=== PATIENT | female | born 1965 | race African-American/Black ===

== ENCOUNTER 2016-08-31 07:00 | Inpatient (IN) | payer OTHER ==
[~2016-08-31] VITALS: Ht 170.2 cm; Wt 81.6 kg
[2016-08-31] VITALS (14 sets, daily range): BP systolic 90–115; BP diastolic 62–77
[~2016-08-31 07:00] MED LIST: ceFAZolin sod 1 GM in NS 55 ML IVPB ONE
--- NOTE | 2016-08-31 12:21 | Pre-Procedure Note/Attestation ---
Pre-Procedure Note/Attestation Complete Prior to Procedure Planned Procedure: bilateral Procedure Narrative: Washout and debridement bilateral breast wounds. Removal right breast implant. Possible placement of wound vac. Indications for Procedure Pre-Operative Diagnosis: Bilateral breast wound dehiscence and infection Attestation I attest that I discussed the nature of the procedure; its benefits; risks and complications; and alternatives (and the risks and benefits of such alternatives ), prior to the procedure, with the patient (or the patient's legal public relations representative). I attest that, if there was a reasonable possibility of needing a blood transfusion, the patient (or the patient's legal public relations representative) was given the [facility] standardized written summary, pursuant to the Alberto [place] Blood Safety Act ([place] Health and Safety Code # 1645, as amended). I attest that I re-evaluated the patient just prior to the surgery and that there has been no change in the patient's H&P, except as documented below: None SADIE IRIZARRY M.D. Aug 31, 2016 12:21
[2016-08-31] MEDS ORDERED: NKM (13:37)
[2016-08-31 14:12] LABS: BASOPHILS % (AUTO) 1.4 % (0.0-2.0); LYMPHOCYTES % (AUTO) 36.9 % (20.0-45.0); MEAN CORPUSCULAR HEMOGLOBIN 29.3 PG (27.0-31.0); MEAN CORPUSCULAR HGB CONC 31.7 G/DL (32.0-36.0); MEAN CORPUSCULAR VOLUME 92 FL (80-99); MEAN PLATELET VOLUME 5.1 FL (6.5-10.1); MONOCYTES % (AUTO) 6.9 % (1.0-10.0); NEUTROPHILS % (AUTO) 51.8 % (45.0-75.0); PLATELET COUNT 472 K/UL (150-450); RED BLOOD COUNT 4.38 M/UL (4.20-5.40); RED CELL DISTRIBUTION WIDTH 12.7 % (11.6-14.8); WHITE BLOOD COUNT 4.7 K/UL (4.8-10.8)
[2016-08-31 14:25] LABS: INR 1.1 (0.9-1.1); PROTHROMBIN TIME 11.8 SEC (9.30-11.50)
[2016-08-31 14:29] LABS: CREATININE 1.2 mg/dL (0.5-0.9); GLOMERULAR FILTRATION RATE 57.3 mL/min (>60); TOTAL PROTEIN 7.9 g/dL (6.6-8.7)
[2016-08-31] MEDS ORDERED: Propofol 10mg/ml 20ml IV ONE (16:00)
[2016-08-31] MEDS ORDERED: Sterile Water Irrig 1000ml IRRIG ONE (16:00)
[2016-08-31] MEDS ORDERED: LR 1000ml ONE (16:00)
[2016-08-31] MEDS ORDERED: Ketamine 500mg Inj ONE (16:00)
[2016-08-31] MEDS ORDERED: Lidocaine 1% MPF 10mg/ml 5ml ONE (16:00)
[2016-08-31] MEDS ORDERED: fentaNYL 100 mcg/2 mL IV ONE (16:00)
[2016-08-31] MEDS ORDERED: NS Irrig 1000ml ONE (16:00)
[2016-08-31] MEDS ORDERED: Bacitracin 50000 Units Vial ONE (16:16)
[2016-08-31] MEDS ORDERED: LR 1000ml 1,000 ML IVLG SCH (16:52)
--- NOTE | 2016-08-31 16:52 | Anethesia Preoperative Eval ---
Anesthesia Pre-op PMH/ROS General Date of Evaluation: Aug 31, 2016 Time of Evaluation: 16:09 Anesthesiologist: Hoang ASA Score: ASA 2 Mallampati Score Class I : Soft palate, uvula, fauces, pillars visible Class II: Soft palate, uvula, fauces visible Class III: Soft palate, base of uvula visible Class IV: Only hard plate visible Mallampati Classification: Class II Surgeon: [place] Diagnosis: Bilateral Breast Wounds Surgical Procedure: I and D Bilateral Breast Wounds Anesthesia History: none Family History: no anesthesia problems Allergies: Coded Allergies: No Known Allergies (Unverified , 08/28/16) Medications: see eMAR Past Medical History Cardiovascular: Reports: HTN, other - HL Hematology/Immune: Reports: anemia PSxH Narrative: Cholecystectomy, DEB, Bilateral Breast Implants Anesthesia Pre-op Phys. Exam Physician Exam Last Vital Signs Date Time Temp Pulse Resp B/P Pulse Ox O2 Delivery O2 Flow Rate FiO2 08/31/16 13:50 97.9 74 20 102/73 97 Room Air Constitutional: NAD Neurologic: CN 2-12 intact Cardiovascular: RRR Respiratory: CTA Gastrointestinal: S/NT/ND Airway Exam Mallampati Score: Class II MO: full ROM: full Teeth: intact Anesthesia Pre-op A/P Labs Hematology Test 08/31/16 13:55 White Blood Count 4.7 K/UL (4.8-10.8) L Red Blood Count 4.38 M/UL (4.20-5.40) Hemoglobin 12.8 G/DL (12.0-16.0) Hematocrit 40.4 % (37.0-47.0) Mean Corpuscular Volume 92 FL (80-99) Mean Corpuscular Hemoglobin 29.3 PG (27.0-31.0) Mean Corpuscular Hemoglobin Concent 31.7 G/DL (32.0-36.0) L Red Cell Distribution Width 12.7 % (11.6-14.8) Platelet Count 472 K/UL (150-450) H Mean Platelet Volume 5.1 FL (6.5-10.1) L Neutrophils (%) (Auto) 51.8 % (45.0-75.0) Lymphocytes (%) (Auto) 36.9 % (20.0-45.0) Monocytes (%) (Auto) 6.9 % (1.0-10.0) Eosinophils (%) (Auto) 3.0 % (0.0-3.0) Basophils (%) (Auto) 1.4 % (0.0-2.0) Coagulation Test 08/31/16 13:55 Prothrombin Time 11.8 SEC (9.30-11.50) H Prothromb Time International Ratio 1.1 (0.9-1.1) Activated Partial Thromboplast Time 27 SEC (23-33) Chemistry Test 08/31/16 13:55 Sodium Level 140 mEQ/L (135-145) Potassium Level 5.0 mEQ/L (3.4-4.9) H Chloride Level 100 mEQ/L (98-107) Carbon Dioxide Level 22 mEQ/L (20-30) Anion Gap 18 (5-15) H Blood Urea Nitrogen 10 mg/dL (7-23) Creatinine 1.2 mg/dL (0.5-0.9) H Estimat Glomerular Filtration Rate 57.3 mL/min (>60) Glucose Level 88 mg/dL (74-106) Calcium Level 10.0 mg/dL (8.6-10.2) Total Bilirubin 0.3 mg/dL (0.0-1.2) Aspartate Amino Transf (AST/SGOT) 17 U/L (5-40) Alanine Aminotransferase (ALT/SGPT) 12 U/L (3-33) Alkaline Phosphatase 98 U/L (35-104) Total Protein 7.9 g/dL (6.6-8.7) Albumin 4.0 g/dL (3.5-5.2) Globulin 3.9 g/dL Albumin/Globulin Ratio 1.0 (1.0-2.7) Risk Assessment & Plan Assessment: ASA 2 Plan: GA Status Change Before Surgery: No Pre-Antibiotics Drug: Levoquine 500 mg Time Given: 16:44 Raul Bolton MD Aug 31, 2016 16:52
[2016-08-31] MEDS ORDERED: Midazolam 2mg/2ml Inj IVP PRN (17:00)
[2016-08-31] MEDS ORDERED: Metoclopramide 10mg/2ml Inj IVP PRN (17:00)
[2016-08-31] MEDS ORDERED: Norco 5mg/325mg tab ORAL PRN ×2 (17:00→22:45)
[2016-08-31] MEDS ORDERED: Ketorolac 30mg Inj IV PRN (17:00)
[2016-08-31] MEDS ORDERED: Oxycodone/Acetaminophen 5-325 ORAL PRN (17:00)
[2016-08-31] MEDS ORDERED: Ketorolac 60mg Inj IV PRN (17:00)
[2016-08-31] MEDS ORDERED: Norco 7.5mg/325mg tab ORAL PRN (17:00)
[2016-08-31] MEDS ORDERED: LORazepam Inj 2mg/ml 1ml IV PRN (17:00)
[2016-08-31] MEDS ORDERED: Atropine Inj 1mg/10ml Syr IV PRN (17:00)
[2016-08-31] MEDS ORDERED: Hydromorphone 0.5mg/0.5ml inj IVP PRN (17:00)
[2016-08-31] MEDS ORDERED: fentaNYL 100 mcg/2 mL IV PRN (17:00)
[2016-08-31] MEDS ORDERED: Meperidine 25mg/0.5ml Inj IV PRN (17:00)
[2016-08-31] MEDS ORDERED: DiphenhydrAMINE 50mg/ml Inj IVP PRN (17:00)
--- NOTE | 2016-08-31 17:01 | Pre-op HX & Phy Repo 2 SIG ---
DATE OF ADMISSION: 08/31/2016 CHIEF COMPLAINT: Bilateral breast wound dehiscence with infection. HISTORY OF PRESENT ILLNESS: The patient is a 50-year-old female, who had previously undergone bilateral capsulectomy, implant exchange, and breast lift procedure one month prior on 07/24/2015. The patient's postoperative course had been complicated by wound dehiscence of each breast and ischemic necrosis of bilateral areolas. The patient was subsequently taken back to the operating room for a washout and debridement procedure of bilateral breast wounds and removal of a left breast implant five days ago on 08/26/2016. The patient is in need of further washout and debridement with possible placement of wound VAC. The patient will undergo followup surgery at [facility] and be admitted postoperatively for wound VAC therapy, wound care, pain management, antibiotic therapy, and serial examinations. PAST MEDICAL HISTORY: Hypercholesterolemia. PAST SURGICAL HISTORY: Breast augmentation in 2006 and cholecystectomy in March 2016, bilateral capsulectomy, implant exchange, and breast lift on 07/24/2015. Washout and debridement of bilateral breast wounds 08/26/2016. MEDICATIONS: Atorvastatin, [place], and Bactrim. SOCIAL HISTORY: Denies smoking. Denies alcohol use. Denies any recreational drug use. FAMILY HISTORY: Noncontributory. ALLERGIES: No known drug allergies. No latex allergy. PHYSICAL EXAMINATION: GENERAL: The patient is in no apparent distress. CHEST: Examination of the chest reveals bilateral wound debridement sites to be intact with overlying viable skin. On the right breast, there are areas of exposed granulation tissue within the central areolar region of the breast at the junction of the Arriola pattern breast lift incision. On the left breast, there is a smaller granulating wound within the central areolar region of the breast. A Ehsan-Roman drain remains in place in the left breast exiting from the center of the horizontal Arriola pattern breast lift incision. LABORATORY AND DIAGNOSTIC DATA: A wound culture taken from the washout debridement procedure on 08/26/2016 returned positive for E. coli and enterococcus species. ASSESSMENT AND PLAN: The patient is a 50-year-old female, status post washout and debridement of bilateral breasts with removal of the left breast implant. The patient is in need of additional surgery for further washout and debridement of bilateral breast wounds. In addition, the patient will undergo removal of the right breast implant. The patient has been well informed about the anticipated surgical procedure and plans to remove the right breast implant. In addition, she has been thoroughly counseled on the risks of surgery which include, but are not limited to bleeding, infection, wound healing problems, undesirable scarring, asymmetry, postoperative hematoma and seroma, poor aesthetic result, possibly requiring additional surgery in the future. The patient understands the risks of procedure, and she was given the opportunity to ask questions that have been answered appropriately. The patient has made a well informed decision to proceed with surgery. The patient will be admitted postoperatively for observation, antibiotic therapy, wound care, and serial examinations. Derrick Zambrano M.D. DR: PREM JOB#: [id number] CC: GLORIA
--- NOTE | 2016-08-31 18:26 | Brief Operative Note ---
Immediate Post Operative Note Operative Note Pre-op Diagnosis: Bilateral breast wound dehiscence and infection Procedure: Washout and debridement bilateral breasts. Removal right breast implant. Placement of bilateral wound vacs. Post-op Diagnosis: Same Post-op Diagnosis: same as pre-op Findings: consistent w/pre-op dx studies Surgeon: Derrick Zambrano MD Anesthesia: general Specimen: yes Complications: none Condition: stable Estimated Blood Loss: minimal Drains: wound vac Implant(s) used?: No DERRICK ZAMBRANO M.D. Aug 31, 2016 18:26
--- NOTE | 2016-08-31 18:34 | Immediate Post-Op Evaluation ---
Immediate Post-Op Evalulation Immediate Post-Op Evalulation Procedure: Bilateral Breast Wound I and D, Wound VAC Placement Date of Evaluation: Aug 31, 2016 Time of Evaluation: 18:42 IV Fluids: 900 LR Blood Products: 0 Estimated Blood Loss: 25 Urinary Output: 0 Blood Pressure Systolic: 114 Blood Pressure Diastolic: 67 Pulse Rate: 89 Respiratory Rate: 16 O2 Sat by Pulse Oximetry: 99 Temperature (Fahrenheit): 97 Pain Score (1-10): 2 Nausea: No Vomiting: No Complications 0 Patient Status: awake, reacts, patent, extubated, none Hydration Status: adequate Raul Bolton MD Aug 31, 2016 18:34
--- NOTE | 2016-08-31 19:11 | Consultation ---
Consult Note Consult Note ID CONSULT: Harsh# [id number] Assessment/Plan ASSESSMENT: 50 y/o female with: // Post-op bilateral breast wound dehiscence / infection - SP I&D, right implant removal, bilateral vac placement 08/31 - WCx pending - SP I&D, left implant removal 08/26 - WCx E.coli, Enterococcus ( sensi unavailable at this time ) - SP bilateral capsulectomy / implant exchange / breast lift 07/23/16 - SP augmentation mammoplasty 2006 // Leukopenia, afebrile // Renal insufficiency ?acute vs chronic vs bactrim false elevation // Thrombocytosis // Hyperlipidemia // Incomplete database // NKDA // Full Code PLAN: - start IV vancomycin, cefepime d# - pending culture review - f/u cultures - monitor CBC, temperatures - monitor BMP - wound care / vac Thanks! Will follow NEFTALI LANDRY Aug 31, 2016 19:10
[2016-08-31] MEDS ORDERED: LR 1000ml 1,000 ML IV SCH (22:30)
[2016-08-31] MEDS ORDERED: Cefepime HCl 2 GM in D5W 110 ML IVPB SCH (22:30)
[2016-08-31] MEDS ORDERED: HYDROmorphone 1mg/ml Carpuject SUBQ PRN (22:45)
[2016-08-31] MEDS ORDERED: Vancomycin 1gm in D5W 275ml IVPB SCH (23:00)
[2016-09-01] VITALS (7 sets, daily range): BP systolic 86–117; BP diastolic 64–78
[2016-09-01] MEDS ORDERED: D5NS 1,000 ML IV SCH
--- NOTE | 2016-09-01 00:31 | Consultation ---
DATE OF CONSULTATION: 08/31/2016 INFECTIOUS DISEASES CONSULTATION: CONSULTING PHYSICIAN: Сергей Young M.D. REQUESTING PHYSICIAN: Myron Senior M.D. REASON FOR CONSULTATION: Postoperative bilateral breast infection. HISTORY OF PRESENT ILLNESS: This is a 50-year-old female who underwent bilateral capsulectomy and implant exchange and breast lift on 07/23/2016, complicated by wound dehiscence and infection, status post incision and drainage and left implant removal on 08/26/2016 with wound culture growing E. coli and Enterococcus with sensitivity unavailable at this time, now taken back for repeat incision and drainage and right implant removal with bilateral vacuum placement today. She has currently been on oral Bactrim perioperatively. She has evidence of leukopenia and afebrile and renal insufficiency and thrombocytosis. Consult completed by chart review as the patient is currently unavailable postoperatively. PAST MEDICAL HISTORY: Hyperlipidemia. PAST SURGICAL HISTORY: 1. Cholecystectomy in March 2016. 2. Incision and drainage and right implant removal with bilateral wound VAC placement on 08/31/2016. 3. Incision and drainage and left implant removal on 08/26/2016 with wound culture positive for Enterococcus and E. coli. 4. Bilateral capsulectomy exchange for/breast left on 07/23/2016. 5. Augmentation mammoplasty in 2006. ALLERGIES: No known drug allergies. MEDICATIONS: 1. Status post Ancef x1. 2. Status post Levaquin x1. 3. Outpatient Bactrim. 4. Atorvastatin. 5. [place]. FAMILY HISTORY: Noncontributory. SOCIAL HISTORY: No reported tobacco, alcohol, or illicit drug abuse. Otherwise unknown. REVIEW OF SYSTEMS: Unable to obtain. PHYSICAL EXAMINATION: VITAL SIGNS: Maximum temperature 97.9 degrees, blood pressure 112/76, heart rate in the 70s, respiratory rate 16, and saturating 100% on three liters nasal cannula. Unable to examine. LABORATORY DATA: White blood cell count 4.7, hemoglobin 12.8, and platelets 472,000. Sodium 140, potassium 5, chloride 100, bicarbonate 22, BUN 10, and creatinine 1.2. INR is 1.1. Liver function tests are within normal limits. MICROBIOLOGY: 1. 08/31/2016, wound culture pending. 2. 08/26/2016, wound culture E. coli and Enterococcus with sensitivity is unavailable at this time. IMAGING: None. ASSESSMENT: 1. Postoperative bilateral breast wound dehiscence and infection with culture positive for Escherichia coli and Enterococcus on Bactrim as an outpatient. She is now status post incision and drainage x2 with bilateral implant removal and VAC placement. 2. Leukopenia, afebrile. 3. Renal insufficiency, question acute versus chronic versus false elevation due to Bactrim. 4. Thrombocytosis, most likely reactive. 5. Hyperlipidemia, on statin as an outpatient. 6. No known drug allergies. 7. Full Code. PLAN: 1. Start IV vancomycin and cefepime day #1 of 14 to 21, pending culture review. 2. Follow up cultures. 3. Monitor CBC and temperatures. 4. Monitor BMP. 5. Wound care and wound VAC. Сергей Young M.D. DR: Patrica JOB#: [id number] CC: Jerry Julian M.D ; Fax#: [phone] Senior M.D.; Fax#: [phone]
[2016-09-01] MEDS ORDERED: Vancomycin 1gm in D5W 275ml IVPB SCH (03:00)
[2016-09-01] MEDS ORDERED: Levofloxacin 500mg tab ORAL SCH (09:00)
[2016-09-01] MEDS ORDERED: Enoxaparin 40mg Inj SUBQ SCH (09:00)
--- NOTE | 2016-09-01 09:26 | Consultation ---
Consult Note Assessment/Plan patient is seen and examined. Dictation is completed Myron Senior MD Sep 01, 2016 09:26
--- NOTE | 2016-09-01 09:30 | Internal Med Progress Note ---
Subjective Physician Name Myron Senior Attending Physician Derrick Zambrano M.D. Current Medications Medications (Trade) Dose Ordered Sig/Kaylin Route PRN Reason Start Time Stop Time Status Last Admin Dose Admin Acetaminophen (Tylenol) 650 mg Q6H PRN ORAL Mild Pain/Temp > 100.5 08/31/16 22:45 09/30/16 22:44 Acetaminophen/ Hydrocodone Bitart ([place] 5/325) 1 tab Q6H PRN ORAL For Pain 08/31/16 22:45 09/07/16 22:44 Enoxaparin Sodium (Lovenox) 40 mg DAILY SUBQ 09/01/16 09:00 10/01/16 08:59 Hydromorphone HCl (Dilaudid) 1 mg Q6HR PRN SUBQ Severe Pain (Pain Scale 7-10) 08/31/16 22:45 09/07/16 22:44 Levofloxacin (Levaquin) 500 mg DAILY ORAL 09/01/16 09:00 09/08/16 08:59 Pantoprazole (Protonix) 40 mg DAILY ORAL 09/01/16 09:00 10/01/16 08:59 Allergies: Coded Allergies: No Known Allergies (Unverified , 08/28/16) ROS Limited/Unobtainable: No Constitutional: Reports: no symptoms HEENT: Reports: no symptoms Respiratory: Reports: no symptoms Gastrointestinal/Abdominal: Reports: no symptoms Genitourinary: Reports: no symptoms Neurologic/Psychiatric: Reports: no symptoms All Systems: reviewed and negative except above Objective Last Vital Signs Date Time Temp Pulse Resp B/P Pulse Ox O2 Delivery O2 Flow Rate FiO2 09/01/16 08:22 97.2 74 20 109/77 98 Room Air 74 08/31/16 19:30 3.0 General Appearance: no apparent distress EENT: PERRL/EOMI Neck: supple Cardiovascular: normal rate Respiratory/Chest: lungs clear Abdomen: soft Extremities: non-tender Neurologic: manager of photography II-XII grossly normal Skin: other - mild erythma and necrotic tissues in breasts . appropriate post op dressing and Vac placement Laboratory Tests Test 08/31/16 13:55 White Blood Count 4.7 K/UL (4.8-10.8) L Red Blood Count 4.38 M/UL (4.20-5.40) Hemoglobin 12.8 G/DL (12.0-16.0) Hematocrit 40.4 % (37.0-47.0) Mean Corpuscular Volume 92 FL (80-99) Mean Corpuscular Hemoglobin 29.3 PG (27.0-31.0) Mean Corpuscular Hemoglobin Concent 31.7 G/DL (32.0-36.0) L Red Cell Distribution Width 12.7 % (11.6-14.8) Platelet Count 472 K/UL (150-450) H Mean Platelet Volume 5.1 FL (6.5-10.1) L Neutrophils (%) (Auto) 51.8 % (45.0-75.0) Lymphocytes (%) (Auto) 36.9 % (20.0-45.0) Monocytes (%) (Auto) 6.9 % (1.0-10.0) Eosinophils (%) (Auto) 3.0 % (0.0-3.0) Basophils (%) (Auto) 1.4 % (0.0-2.0) Prothrombin Time 11.8 SEC (9.30-11.50) H Prothromb Time International Ratio 1.1 (0.9-1.1) Activated Partial Thromboplast Time 27 SEC (23-33) Sodium Level 140 mEQ/L (135-145) Potassium Level 5.0 mEQ/L (3.4-4.9) H Chloride Level 100 mEQ/L (98-107) Carbon Dioxide Level 22 mEQ/L (20-30) Anion Gap 18 (5-15) H Blood Urea Nitrogen 10 mg/dL (7-23) Creatinine 1.2 mg/dL (0.5-0.9) H Estimat Glomerular Filtration Rate 57.3 mL/min (>60) Glucose Level 88 mg/dL (74-106) Calcium Level 10.0 mg/dL (8.6-10.2) Total Bilirubin 0.3 mg/dL (0.0-1.2) Aspartate Amino Transf (AST/SGOT) 17 U/L (5-40) Alanine Aminotransferase (ALT/SGPT) 12 U/L (3-33) Alkaline Phosphatase 98 U/L (35-104) Total Protein 7.9 g/dL (6.6-8.7) Albumin 4.0 g/dL (3.5-5.2) Globulin 3.9 g/dL Albumin/Globulin Ratio 1.0 (1.0-2.7) Intake and Output 08/31/16 09/01/16 19:00 07:00 Intake Total 900 ml 240 ml Output Total 25 ml Balance 875 ml 240 ml Intake Oral 240 ml IV Total 900 ml Output Estimated Blood Loss 25 ml # Voids 2 Assessment/Plan Status: stable Assessment/Plan 1- Cellulitis of Breast tissues 2- Revision surgeries/debridment of breasts 3- GI-DVT prophylaxia Plan: ID-Dr Brooke already started on Levaquine. New cultures are obtained Myron Senior MD Sep 01, 2016 09:30
--- NOTE | 2016-09-01 09:52 | General Progress Note ---
Progress Note Progress Note History: No events overnight. Pain adequately controlled. Tolerating po. No F/C. Minimal wound vac output overnight. Exam: T-97.2 109/77 74 20 98% RA NAD Breast exam stable. Bilateral breast swelling and induration. No cellulitis. Bilateral wound vac dressings in place with good seal. A/P: 50y/o F s/p washout and debridement of bilateral breast wounds with wound vac placement POD#1. Doing well. No issues following surgery. Continue wound vac therapy. Plan for wound vac change on . Pain management. Ambulate. F/u culture results. Abx per ID recs. SADIE IRIZARRY M.D. Sep 01, 2016 09:52
[2016-09-01] MEDS: Enoxaparin 40mg Inj SUBQ SCH (10:20)
--- NOTE | 2016-09-01 10:45 | History and Physical Report ---
DATE OF ADMISSION: 08/31/2016 SOURCE OF INFORMATION: The patient and EMR. HISTORY OF PRESENT ILLNESS: The patient is a pleasant 50-year-old female with status post revision surgery and debridement of the both of breast tissues and extraction of the breast implants following complicated course of the breast implant surgery. I have been requested to see the patient for Internal Medicine consultation. At the time of evaluation, the patient denies any moderate or severe pain. The patient is a status post surgery. Pain is well managed. Denies any abnormal bleeding. Denies any severe pain. Denies any chest pain. REVIEW OF SYSTEMS: All 12 elements of the review of systems reviewed with the patient. Pertinent positives and negative are reported as above. PAST SURGICAL HISTORY: Breast implant surgery in about one - two months ago. HOME MEDICATIONS: Denies. ALLERGIES: NKDA. SOCIAL HISTORY: The patient is a mother of two. Denies history of illicit drug abuse, smoking or alcohol abuse. FAMILY HISTORY: Reviewed noncontributory. PHYSICAL EXAMINATION: VITAL SIGNS: Blood pressure 90/60, temperature 98.2, pulse oximetry 98% on room air, pulse rate 70 - 75, and temperature 97.4. HEAD AND NECK: Atraumatic and normocephalic. CHEST: Clear to auscultation. HEART: S1 and S2. Regular rate and rhythm. ABDOMEN: Soft. No organomegaly. MUSCULOSKELETAL: No gross focal motor deficit. NEUROLOGY: The patient is awake, alert and oriented x3, breast tissues are appropriately dressed, status post surgery. The VAC in place bilaterally. There is positive for the minimal erythema and tenderness in the perimeters of the breast tissues LABORATORY DATA: Labs dated 08/31/2016 shows WBC 4.7, hemoglobin 12.8, platelets 472,000. Sodium 140, potassium 5, BUN 10, and creatinine 1.2. INR 1.1. ASSESSMENT AND PLAN: 1. Cellulitis of the breast tissues. 2. Post breast implant surgery followed by extraction and revision of the breast tissues by primary surgeon. 3. Acute renal failure. 4. Dehydration. 5. Hyperkalemia. 6. Gastrointestinal and deep vein thrombosis prophylaxis. PLAN OF CARE: We will continue with the Levaquin 500 mg by mouth daily intravenous. The bacterial sensitivity test was obtained as an outpatient is reviewed. Infectious Disease, Dr. Brooke, is notified. We will continue with the current ID management and GI and DVT prophylaxis. Case was discussed with Dr. Wagner. We will follow up. Dear Dr. Wagner, thanks for giving me the opportunity to participate in your patient's care. Myron Senior M.D. DR: ERICK JOB#: [id number] CC:
--- NOTE | 2016-09-01 10:49 | 48 Hour Post Anesthesia Eval ---
Post Anesthesia Evaluation Procedure: Bilateral Breast Wound I and D, Wound VAC Placement Date of Evaluation: Sep 01, 2016 Time of Evaluation: 16:40 Blood Pressure Systolic: 109 0: 77 Pulse Rate: 74 Respiratory Rate: 20 Temperature (Fahrenheit): 97.2 O2 Sat by Pulse Oximetry: 98 Airway: patent Nausea: No Vomiting: No Pain Intensity: 2 Hydration Status: adequate Cardiopulmonary Status: Stable Mental Status/LOC: patient returned to baseline Follow-up Care/Observations: As per surgery Post-Anesthesia Complications: No anesthetic complication Follow-up care needed: N/A LIDIA BEAUCHAMP M.D. Sep 01, 2016 10:49
[2016-09-01] MEDS: LEVOFLOXACIN 500 MG IVPB SCH (11:15)
--- NOTE | 2016-09-01 12:16 | Consultation ---
DATE OF CONSULTATION: SOURCE OF INFORMATION: The patient and EMR. HISTORY OF PRESENT ILLNESS: The patient is a pleasant 50-year-old female with status post revision surgery and debridement of the both of breast tissues and extraction of the breast implants following complicated course of the breast implant surgery. I have been requested to see the patient for Internal Medicine consultation. At the time of evaluation, the patient denies any moderate or severe pain. The patient is a status post surgery. Pain is well managed. Denies any abnormal bleeding. Denies any severe pain. Denies any chest pain. REVIEW OF SYSTEMS: All 12 elements of the review of systems reviewed with the patient. Pertinent positives and negative are reported as above. PAST SURGICAL HISTORY: Breast implant surgery in about one - two months ago. SOCIAL HISTORY: The patient is a mother of two. Denies history of illicit drug abuse, smoking or alcohol abuse. HOME MEDICATIONS: Denies. ALLERGIES: NKDA. FAMILY HISTORY: Reviewed noncontributory. PHYSICAL EXAMINATION: VITAL SIGNS: Blood pressure 90/60, temperature 98.2, pulse oximetry 98% on room air, pulse rate 70 - 75, and temperature 97.4. HEAD AND NECK: Atraumatic and normocephalic. CHEST: Clear to auscultation. HEART: S1 and S2. Regular rate and rhythm. ABDOMEN: Soft. No organomegaly. MUSCULOSKELETAL: No gross focal motor deficit. NEUROLOGY: The patient is awake, alert and oriented x3, breast tissues are appropriately dressed, status post surgery. The VAC in place bilaterally. There is positive for the minimal erythema and tenderness in the perimeters of the breast tissues LABORATORY DATA: Labs dated 08/31/2016 shows WBC 4.7, hemoglobin 12.8, and platelets 472,000. Sodium 140, potassium 5, BUN 10, and creatinine 1.2. INR 1.1. ASSESSMENT AND PLAN: 1. Cellulitis of the breast tissues. 2. Post breast implant surgery followed by extraction and revision of the breast tissues by primary surgeon. 3. Acute renal failure. 4. Dehydration. 5. Hyperkalemia. 6. Gastrointestinal and deep vein thrombosis prophylaxis. PLAN OF CARE: We will continue with the Levaquin 500 mg by mouth daily intravenous. The bacterial sensitivity test was obtained as an outpatient is reviewed. Infectious Disease, Dr. Brooke, is notified. We will continue with the current ID management and GI and DVT prophylaxis. Case was discussed with Dr. Wagner. We will follow up. Dear Dr. Wagner, thanks for giving me the opportunity to participate in your patient's care. Myron Senior M.D. DR: ERICK JOB#: [id number] CC:
--- NOTE | 2016-09-01 18:42 | Infectious Diseases Prog Note ---
Assessment/Plan Assessment/Plan ASSESSMENT: 50 y/o female with: // Post-op bilateral breast wound dehiscence / infection - SP I&D, right implant removal, bilateral vac placement 08/31 - WGS(-), Cx pending - SP I&D, left implant removal 08/26 - WCx qS-E.coli, V,ASEnterococcus - SP bilateral capsulectomy / implant exchange / breast lift 07/23/16 - SP augmentation mammoplasty 2006 // Leukopenia, afebrile // Renal insufficiency ?acute vs chronic vs bactrim false elevation // Thrombocytosis // Hyperlipidemia // NKDA // Full Code PLAN: - continue levaquin d# 2 ( 08/31 SP IV vancomycin, cefepime d# 1- changed d/t IV infiltration? ) - f/u cultures - monitor CBC, temperatures - monitor BMP - wound care / vac - plan vac change 09/03 Subjective Allergies: Coded Allergies: No Known Allergies (Unverified , 08/28/16) Subjective remains afebrile pain controlled apparently ABX changed d/t IV infiltration Objective Vital Signs Last 24 Hour Vital Signs Date Time Temp Pulse Resp B/P Pulse Ox O2 Delivery O2 Flow Rate FiO2 09/01/16 16:25 96.8 67 19 106/75 99 Room Air 67 09/01/16 11:54 96.9 75 20 108/74 100 Room Air 75 09/01/16 10:49 74 20 98 09/01/16 08:22 97.2 74 20 109/77 98 Room Air 74 09/01/16 04:00 96.4 69 18 112/78 97 Room Air 09/01/16 00:29 95.9 67 19 86/64 96 Room Air 08/31/16 21:15 96.6 75 19 92/64 92 Room Air 08/31/16 20:45 08/31/16 20:30 96.4 70 18 90/62 94 Room Air 08/31/16 20:15 96.4 68 19 97/63 93 Room Air 08/31/16 20:00 96.4 71 19 97/65 96 Room Air 08/31/16 19:45 96.3 75 19 92/64 91 Room Air 08/31/16 19:30 97.8 78 15 100/65 97 Nasal Cannula 3.0 08/31/16 19:15 73 16 100/68 99 Nasal Cannula 3.0 08/31/16 19:05 77 12 107/77 99 Nasal Cannula 3.0 08/31/16 18:50 74 14 105/76 98 Nasal Cannula 3.0 08/31/16 18:40 73 15 112/76 100 Nasal Cannula 3.0 Height (Feet): 5 Height (Inches): 7.00 Weight (Pounds): 180 General Appearance: no acute distress Respiratory/Chest: no respiratory distress Cardiovascular: normal rate, regular rhythm Abdomen: normal bowel sounds, soft, non tender, non distended Extremities: no edema Skin: other - breast vac x2 Microbiology Date/Time Source Procedure Growth Status 08/31/16 16:47 Breast Left Gram Stain - Final Resulted 08/31/16 16:47 Breast Left Aerobic Culture Pending Resulted 08/31/16 16:47 Breast Left Anaerobic Culture Pending Resulted 08/31/16 16:45 Breast Right Gram Stain - Final Resulted 08/31/16 16:45 Breast Right Aerobic Culture Pending Resulted 08/31/16 16:45 Breast Right Anaerobic Culture Pending Resulted Current Medications Medications (Trade) Dose Ordered Sig/Kaylin Route PRN Reason Start Time Stop Time Status Last Admin Dose Admin Acetaminophen (Tylenol) 650 mg Q6H PRN ORAL Mild Pain/Temp > 100.5 08/31/16 22:45 09/30/16 22:44 Acetaminophen/ Hydrocodone Bitart ([place] 5/325) 1 tab Q6H PRN ORAL For Pain 08/31/16 22:45 09/07/16 22:44 Enoxaparin Sodium 40 mg 40 mg DAILY SUBQ 09/01/16 09:00 10/01/16 08:59 09/01/16 10:20 Hydromorphone HCl (Dilaudid) 1 mg Q6HR PRN SUBQ Severe Pain (Pain Scale 7-10) 08/31/16 22:45 09/07/16 22:44 Levofloxacin (Levaquin) 50 ml @ 100 mls/hr Q24H IVPB 09/01/16 11:00 09/08/16 10:59 09/01/16 11:15 Pantoprazole (Protonix) 40 mg DAILY ORAL 09/01/16 09:00 10/01/16 08:59 09/01/16 10:19 NEFTALI LANDRY Sep 01, 2016 18:42
[2016-09-02] VITALS: BP 102/64
--- NOTE | 2016-09-02 01:45 | Operative Note - Dictated ---
DATE OF OPERATION: 08/31/2016 PREOPERATIVE DIAGNOSIS: Bilateral breast wounds. POSTOPERATIVE DIAGNOSIS: Bilateral breast wounds. OPERATIVE PROCEDURE: 1. Washout and debridement of bilateral breast wounds. 2. Removal of right breast implant. 3. Placement of wound VACs on right and left breasts. SURGEON: Derrick Zambrano M.D. ANESTHESIA: General. ESTIMATED BLOOD LOSS: Less than 25 mL. COMPLICATIONS: None. SPECIMENS: 1. Right breast wound culture. 2. Left breast wound culture. 3. Right breast implant. DRAINS: Left breast wound VAC, right breast wound VAC. DISPOSITION: The patient tolerated the procedure well and was transferred to recovery room in stable condition. INDICATIONS: The patient is a 50-year-old female, who had previously undergone bilateral capsulectomy, implant exchange, and breast lift procedure one month ago on 07/24/2015. The patient's postoperative course has been complicated by wound dehiscence of each breast and ischemic necrosis of bilateral areolas. The patient was subsequently taken back to the operating room for a washout and debridement procedure of bilateral breast wounds and removal of the left breast implant five days ago on 08/26/2016. The patient is in need of further washout and debridement of bilateral breast wounds, removal of the right breast implant, and possible wound VAC placement. The patient has been well informed about the anticipated surgical procedure and planned to remove the right breast implant. In addition, she has been thoroughly counseled on the risks of surgery, which include, but are not limited to bleeding, infection, wound healing problems, undesirable scarring, asymmetry, postoperative hematoma and seroma, poor aesthetic result, possibly requiring additional surgery in the future. The patient understands the risks of the procedure and she was given the opportunity to ask questions and have them answered appropriately. The patient has made a well informed decision to proceed with surgery. The patient will be admitted postoperatively for observation, antibiotic therapy, wound care, and serial examinations. PROCEDURE IN DETAIL: After obtaining consent for the planned surgical procedure, the patient was transferred into the operating room and placed on the operative room table in supine position. Sequential pneumatic compression devices were placed on the lower extremities before induction of anesthesia. The patient received antibiotic prophylaxis. The patient underwent general anesthesia. Padding was placed beneath all bony prominences and the patient was covered with a bear hugger. The left breast YOVANI drain was removed and the patient's chest was prepped with Betadine and then dressed in sterile fashion. Initially, the right breast was evaluated for any remaining nonviable tissues in need of further debridement. The previous sutures and Whitney drains placed at the initial washout and debridement procedure were removed and the right breast parenchyma was examined for any remaining nonviable tissues. Following removal of the sutures from the right breast, a culturette was taken of the drainage and sent for Gram stain, culture, and sensitivity. Examination of the right breast revealed all remaining tissues to be viable and in no need of further debridement. The right breast implant capsule was divided at the base near the horizontal part of the joseph pattern incision with the Bovie electrocautery and the right breast implant was removed. Next, efforts turned towards evaluating the left breast for any remaining nonviable tissues in need of further debridement. The previous sutures placed at the initial washout and debridement procedure were removed and the left breast parenchyma was examined. A culturette was taken of the drainage and sent for Gram stain, culture, and sensitivity. Examination of the left breast revealed all remaining tissues to be viable and in no need of further debridement. At this time, bilateral breast wounds were thoroughly irrigated with three liters of pulse lavage and hemostasis was obtained with the Bovie electrocautery. Following confirmation of hemostasis, it was felt that both breasts will benefit from wound VAC placement. Bilateral breast wounds were partially reapproximated with a combination of 2-0 PDS and 3-0 PDS interrupted buried sutures. On the right breast, the wound was left open centrally and along the lateral aspect of the inframammary fold. On the left breast, the wound was left open centrally. A small wound VAC sponge was cut to appropriate size and placed over the two wounds remaining on the right breast and covered with a KCI dressing and the suction tubing. On the left breast, a small wound VAC sponge was cut to appropriate size and placed over the single central wound and covered with a KCI dressing and the suction tubing. After attaching the KCI suction tubing up to the wound VAC, there was noted to be a good seal. The patient's chest was then cleaned with saline and dried. The patient tolerated the procedure well. There were no issues or complications. Lap count, instrument count, and needle count were recorded as correct at the completion of surgery. The patient was awoken from general anesthesia without difficulty and transferred to the recovery room in stable condition. Derrick Zambrano M.D. DR: Stephany JOB#: [id number] CC: GLORIA
[2016-09-02 04:00] VITALS: BP 104/76
[2016-09-02 07:09] LABS: BASOPHILS % (AUTO) 1.1 % (0.0-2.0); EOSINOPHILS % (AUTO) 1.6 % (0.0-3.0); LYMPHOCYTES % (AUTO) 33.4 % (20.0-45.0); MEAN CORPUSCULAR HEMOGLOBIN 29.4 PG (27.0-31.0); MEAN CORPUSCULAR HGB CONC 31.4 G/DL (32.0-36.0); MEAN CORPUSCULAR VOLUME 94 FL (80-99); MEAN PLATELET VOLUME 5.3 FL (6.5-10.1); MONOCYTES % (AUTO) 8.7 % (1.0-10.0); NEUTROPHILS % (AUTO) 55.2 % (45.0-75.0); PLATELET COUNT 446 K/UL (150-450); RED BLOOD COUNT 4.09 M/UL (4.20-5.40); RED CELL DISTRIBUTION WIDTH 13.1 % (11.6-14.8); WHITE BLOOD COUNT 5.1 K/UL (4.8-10.8)
[2016-09-02 07:28] LABS: ALANINE AMINOTRANSFERASE 9 U/L (3-33); ANION GAP 15 (5-15); ASPARTATE AMINO TRANSFERASE 9 U/L (5-40); CARBON DIOXIDE 25 mEQ/L (20-30); CHLORIDE 100 mEQ/L (98-107); CREATININE 1.1 mg/dL (0.5-0.9); GLOMERULAR FILTRATION RATE > 60 mL/min (>60); HEMOLYSIS 2; POTASSIUM 3.9 mEQ/L (3.4-4.9); SODIUM 140 mEQ/L (135-145); TOTAL PROTEIN 7.4 g/dL (6.6-8.7)
[2016-09-02 08:00] VITALS: BP 118/86
[2016-09-02] MEDS: Enoxaparin 40mg Inj SUBQ SCH (08:40)
--- NOTE | 2016-09-02 08:40 | Internal Med Progress Note ---
Subjective Physician Name Myron Senior Attending Physician Derrick Zambrano M.D. Current Medications Medications (Trade) Dose Ordered Sig/Kaylin Route PRN Reason Start Time Stop Time Status Last Admin Dose Admin Acetaminophen (Tylenol) 650 mg Q6H PRN ORAL Mild Pain/Temp > 100.5 08/31/16 22:45 09/30/16 22:44 Acetaminophen/ Hydrocodone Bitart ([place] 5/325) 1 tab Q6H PRN ORAL For Pain 08/31/16 22:45 09/07/16 22:44 Enoxaparin Sodium 40 mg 40 mg DAILY SUBQ 09/01/16 09:00 10/01/16 08:59 09/01/16 10:20 Hydromorphone HCl (Dilaudid) 1 mg Q6HR PRN SUBQ Severe Pain (Pain Scale 7-10) 08/31/16 22:45 09/07/16 22:44 Levofloxacin (Levaquin) 50 ml @ 100 mls/hr Q24H IVPB 09/01/16 11:00 09/08/16 10:59 09/01/16 11:15 Pantoprazole (Protonix) 40 mg DAILY ORAL 09/01/16 09:00 10/01/16 08:59 09/01/16 10:19 Allergies: Coded Allergies: No Known Allergies (Unverified , 08/28/16) ROS Limited/Unobtainable: No Constitutional: Reports: other - tingling on breast tissues HEENT: Reports: no symptoms Cardiovascular: Reports: no symptoms Respiratory: Reports: no symptoms Gastrointestinal/Abdominal: Reports: no symptoms Subjective breast tissues wound are appropriately dressed Objective Last Vital Signs Date Time Temp Pulse Resp B/P Pulse Ox O2 Delivery O2 Flow Rate FiO2 09/02/16 08:00 97.3 70 18 118/86 99 Room Air 08/31/16 19:30 3.0 General Appearance: WD/WN EENT: PERRL/EOMI Neck: supple Cardiovascular: normal rate Respiratory/Chest: lungs clear Abdomen: soft Extremities: normal range of motion 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 Laboratory Tests Test 09/02/16 05:20 White Blood Count 5.1 K/UL (4.8-10.8) Red Blood Count 4.09 M/UL (4.20-5.40) L Hemoglobin 12.0 G/DL (12.0-16.0) Hematocrit 38.3 % (37.0-47.0) Mean Corpuscular Volume 94 FL (80-99) Mean Corpuscular Hemoglobin 29.4 PG (27.0-31.0) Mean Corpuscular Hemoglobin Concent 31.4 G/DL (32.0-36.0) L Red Cell Distribution Width 13.1 % (11.6-14.8) Platelet Count 446 K/UL (150-450) Mean Platelet Volume 5.3 FL (6.5-10.1) L Neutrophils (%) (Auto) 55.2 % (45.0-75.0) Lymphocytes (%) (Auto) 33.4 % (20.0-45.0) Monocytes (%) (Auto) 8.7 % (1.0-10.0) Eosinophils (%) (Auto) 1.6 % (0.0-3.0) Basophils (%) (Auto) 1.1 % (0.0-2.0) Sodium Level 140 mEQ/L (135-145) Potassium Level 3.9 mEQ/L (3.4-4.9) Chloride Level 100 mEQ/L (98-107) Carbon Dioxide Level 25 mEQ/L (20-30) Anion Gap 15 (5-15) Blood Urea Nitrogen 14 mg/dL (7-23) Creatinine 1.1 mg/dL (0.5-0.9) H Estimat Glomerular Filtration Rate > 60 mL/min (>60) Glucose Level 90 mg/dL (74-106) Calcium Level 10.0 mg/dL (8.6-10.2) Total Bilirubin < 0.2 mg/dL (0.0-1.2) Aspartate Amino Transf (AST/SGOT) 9 U/L (5-40) Alanine Aminotransferase (ALT/SGPT) 9 U/L (3-33) Alkaline Phosphatase 90 U/L (35-104) Total Protein 7.4 g/dL (6.6-8.7) Albumin 3.8 g/dL (3.5-5.2) Globulin 3.6 g/dL Albumin/Globulin Ratio 1.0 (1.0-2.7) Microbiology Date/Time Source Procedure Growth Status 08/31/16 16:47 Breast Left Gram Stain - Final Resulted 08/31/16 16:47 Breast Left Aerobic Culture Pending Resulted 08/31/16 16:47 Breast Left Anaerobic Culture Pending Resulted 08/31/16 16:45 Breast Right Gram Stain - Final Resulted 08/31/16 16:45 Breast Right Aerobic Culture Pending Resulted 08/31/16 16:45 Breast Right Anaerobic Culture Pending Resulted Intake and Output 09/01/16 09/02/16 19:00 07:00 Intake Total 240 ml 180 ml Output Total 25 ml 0 ml Balance 215 ml 180 ml Intake Oral 240 ml 180 ml Output Drainage Total 25 ml 0 ml # Voids 1 2 Assessment/Plan Status: stable Assessment/Plan 1. Cellulitis of the breast tissues 2. Post breast implant surgery followed by extraction and revision of the breast implant 3. Acute renal failure. 4. Dehydration. 5. Hyperkalemia. 6. Gastrointestinal and deep vein thrombosis prophylaxis. Plan: ID-Dr Brooke/Dr Young On Levaquine. New cultures are obtained and pending Myron Senior MD Sep 02, 2016 08:40
[2016-09-02] MEDS: LEVOFLOXACIN 500 MG IVPB SCH (10:41)
[2016-09-02 12:00] VITALS: BP 120/84
--- NOTE | 2016-09-02 12:40 | General Progress Note ---
Progress Note Progress Note History: No events overnight. Doing well. Pain adequately controlled. No F/C. Exam: AFVSS NAD Stable breast exam. No cellulitis. Bilateral wound vac dressings remain in place with good seal. Labs: wbc - 5.1(4.7) Hct - 38.3 (40.4) Plt - 446 (472) A/P: 50y/o F s/p washout and debridement of bilateral breast wounds with wound vac placement POD#2. Doing well. Continue wound vac therapy. Plan for wound vac change tomorrow. WOCN consulted. Pain management. Ambulate. F/u culture results. IV Abx per ID. Appreciate medicine and ID assistance. SADIE IRIZARRY M.D. Sep 02, 2016 12:40
[2016-09-02 16:04] VITALS: BP 119/79
[2016-09-02 20:00] VITALS: BP 113/78
[2016-09-03] VITALS: BP 108/75
[2016-09-03 04:00] VITALS: BP 105/74
[2016-09-03 06:10] LABS: BASOPHILS % (AUTO) 0.9 % (0.0-2.0); EOSINOPHILS % (AUTO) 3.2 % (0.0-3.0); LYMPHOCYTES % (AUTO) 33.8 % (20.0-45.0); MEAN CORPUSCULAR HEMOGLOBIN 30.7 PG (27.0-31.0); MEAN CORPUSCULAR HGB CONC 33.2 G/DL (32.0-36.0); MEAN CORPUSCULAR VOLUME 92 FL (80-99); MEAN PLATELET VOLUME 5.1 FL (6.5-10.1); MONOCYTES % (AUTO) 8.7 % (1.0-10.0); NEUTROPHILS % (AUTO) 53.4 % (45.0-75.0); PLATELET COUNT 438 K/UL (150-450); RED BLOOD COUNT 3.96 M/UL (4.20-5.40); RED CELL DISTRIBUTION WIDTH 12.8 % (11.6-14.8); WHITE BLOOD COUNT 4.9 K/UL (4.8-10.8)
[2016-09-03 08:45] VITALS: BP 117/84
[2016-09-03] MEDS: Enoxaparin 40mg Inj SUBQ SCH (08:48)
--- NOTE | 2016-09-03 09:34 | Internal Med Progress Note ---
Subjective Physician Name Myron Senior Attending Physician Derrick Zambrano M.D. Current Medications Medications (Trade) Dose Ordered Sig/Kaylin Route PRN Reason Start Time Stop Time Status Last Admin Dose Admin Acetaminophen (Tylenol) 650 mg Q6H PRN ORAL Mild Pain/Temp > 100.5 08/31/16 22:45 09/30/16 22:44 09/03/16 09:28 Acetaminophen/ Hydrocodone Bitart ([place] 5/325) 1 tab Q6H PRN ORAL For Pain 08/31/16 22:45 09/07/16 22:44 Enoxaparin Sodium 40 mg 40 mg DAILY SUBQ 09/01/16 09:00 10/01/16 08:59 09/03/16 08:48 Hydromorphone HCl (Dilaudid) 1 mg Q6HR PRN SUBQ Severe Pain (Pain Scale 7-10) 08/31/16 22:45 09/07/16 22:44 Levofloxacin (Levaquin) 50 ml @ 100 mls/hr Q24H IVPB 09/01/16 11:00 09/08/16 10:59 09/02/16 10:41 Pantoprazole (Protonix) 40 mg DAILY ORAL 09/01/16 09:00 10/01/16 08:59 09/03/16 08:47 Allergies: Coded Allergies: No Known Allergies (Unverified , 08/28/16) ROS Limited/Unobtainable: No Constitutional: Reports: no symptoms HEENT: Reports: no symptoms Cardiovascular: Reports: no symptoms Respiratory: Reports: no symptoms Subjective breast tissues wound are appropriately dressed Objective Last Vital Signs Date Time Temp Pulse Resp B/P Pulse Ox O2 Delivery O2 Flow Rate FiO2 09/03/16 08:45 97.3 71 18 117/84 98 Room Air 08/31/16 19:30 3.0 General Appearance: WD/WN EENT: PERRL/EOMI Neck: supple Cardiovascular: normal rate Respiratory/Chest: lungs clear Abdomen: soft Extremities: non-tender 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 Skin: other - breast appropriatedly dressed on Vac Laboratory Tests Test 09/03/16 05:40 White Blood Count 4.9 K/UL (4.8-10.8) Red Blood Count 3.96 M/UL (4.20-5.40) L Hemoglobin 12.1 G/DL (12.0-16.0) Hematocrit 36.5 % (37.0-47.0) L Mean Corpuscular Volume 92 FL (80-99) Mean Corpuscular Hemoglobin 30.7 PG (27.0-31.0) Mean Corpuscular Hemoglobin Concent 33.2 G/DL (32.0-36.0) Red Cell Distribution Width 12.8 % (11.6-14.8) Platelet Count 438 K/UL (150-450) Mean Platelet Volume 5.1 FL (6.5-10.1) L Neutrophils (%) (Auto) 53.4 % (45.0-75.0) Lymphocytes (%) (Auto) 33.8 % (20.0-45.0) Monocytes (%) (Auto) 8.7 % (1.0-10.0) Eosinophils (%) (Auto) 3.2 % (0.0-3.0) H Basophils (%) (Auto) 0.9 % (0.0-2.0) Microbiology Date/Time Source Procedure Growth Status 08/31/16 12:50 Nasal Nares MRSA Culture - Final Staphylococcus Aureus - Mrsa Complete 08/31/16 16:47 Breast Left Gram Stain - Final Resulted 08/31/16 16:47 Aerobic Culture - Preliminary Strep Species, Gamma-Hemolytic Resulted 08/31/16 16:47 Breast Left Anaerobic Culture - Preliminary NO GROWTH AFTER 48 HOURS Resulted 08/31/16 16:45 Breast Right Gram Stain - Final Resulted 08/31/16 16:45 Aerobic Culture - Preliminary Gram Positive Cocci Resulted 08/31/16 16:45 Breast Right Anaerobic Culture - Preliminary Resulted Intake and Output 09/02/16 09/03/16 19:00 07:00 Intake Total 810 ml Output Total 10 ml Balance 810 ml -10 ml Intake Oral 760 ml IV Total 50 ml Output Drainage Total 10 ml # Voids 3 3 # Bowel Movements 1 Assessment/Plan Status: stable Assessment/Plan 1. Cellulitis of the breast tissues 2. Post breast implant surgery followed by extraction and revision of the breast implant 3. Acute renal failure. 4. Dehydration. 5. Hyperkalemia. 6. Gastrointestinal and deep vein thrombosis prophylaxis. Plan: ID-Dr Brooke/Dr Young On Levaquine. New cultures are obtained and pending current management at Dr Camarillo's discretion Myron Senior MD Sep 03, 2016 09:34
--- NOTE | 2016-09-03 11:46 | General Progress Note ---
Progress Note Progress Note History: No events overnight. Doing well. Pain adequately controlled. No F/C. Wound vac change today. Exam: AFVSS NAD Wound vac removed with assistance of wound care nurse. Bilateral breast wounds clean with granulation tissue. No purulent drainage / discharge noted. A/P: 50y/o F s/p washout and debridement of bilateral breast wounds with wound vac placement POD#3. Doing well. Wounds clean with no tissue in need of further debridement. Continue wound vac therapy. Pain management. Ambulate. F/u culture results. Abx per ID. Dispo planning. SADIE IRIZARRY M.D. Sep 03, 2016 11:46
[2016-09-03 12:37] VITALS: BP 113/65
[2016-09-03 15:58] VITALS: BP 115/89
[2016-09-03 19:29] VITALS: BP 110/77
--- NOTE | 2016-09-03 22:04 | Infectious Diseases Prog Note ---
Subjective Constitutional: Denies: anorexia, chills, drenching sweats, fatigue, fever, no symptoms, other Allergies: Coded Allergies: No Known Allergies (Unverified , 08/28/16) Objective Vital Signs Last 24 Hour Vital Signs Date Time Temp Pulse Resp B/P Pulse Ox O2 Delivery O2 Flow Rate FiO2 09/03/16 19:29 97.5 62 20 110/77 98 Room Air 09/03/16 15:58 97.5 69 18 115/89 98 Room Air 09/03/16 12:37 98.8 114 18 113/65 Nasal Cannula 09/03/16 10:27 97.3 09/03/16 08:45 97.3 71 18 117/84 98 Room Air 09/03/16 04:00 97.7 67 20 105/74 98 Room Air 09/03/16 00:00 97.5 79 18 108/75 95 Room Air Height (Feet): 5 Height (Inches): 7.00 Weight (Pounds): 180 HEENT: mucous membranes moist Respiratory/Chest: no accessory muscle use Cardiovascular: regular rhythm Abdomen: non distended Laboratory Tests Test 09/03/16 05:40 White Blood Count 4.9 K/UL (4.8-10.8) Red Blood Count 3.96 M/UL (4.20-5.40) L Hemoglobin 12.1 G/DL (12.0-16.0) Hematocrit 36.5 % (37.0-47.0) L Mean Corpuscular Volume 92 FL (80-99) Mean Corpuscular Hemoglobin 30.7 PG (27.0-31.0) Mean Corpuscular Hemoglobin Concent 33.2 G/DL (32.0-36.0) Red Cell Distribution Width 12.8 % (11.6-14.8) Platelet Count 438 K/UL (150-450) Mean Platelet Volume 5.1 FL (6.5-10.1) L Neutrophils (%) (Auto) 53.4 % (45.0-75.0) Lymphocytes (%) (Auto) 33.8 % (20.0-45.0) Monocytes (%) (Auto) 8.7 % (1.0-10.0) Eosinophils (%) (Auto) 3.2 % (0.0-3.0) H Basophils (%) (Auto) 0.9 % (0.0-2.0) Current Medications Medications (Trade) Dose Ordered Sig/Kaylin Route PRN Reason Start Time Stop Time Status Last Admin Dose Admin Acetaminophen (Tylenol) 650 mg Q6H PRN ORAL Mild Pain/Temp > 100.5 08/31/16 22:45 09/30/16 22:44 09/03/16 09:28 Acetaminophen/ Hydrocodone Bitart ([place] 5/325) 1 tab Q6H PRN ORAL For Pain 08/31/16 22:45 09/07/16 22:44 Enoxaparin Sodium 40 mg 40 mg DAILY SUBQ 09/01/16 09:00 10/01/16 08:59 09/03/16 08:48 Hydromorphone HCl (Dilaudid) 1 mg Q6HR PRN SUBQ Severe Pain (Pain Scale 7-10) 08/31/16 22:45 09/07/16 22:44 Levofloxacin (Levaquin) 100 ml @ 200 mls/hr Q24H IVPB 09/03/16 11:42 09/08/16 10:59 09/03/16 11:42 Pantoprazole (Protonix) 40 mg DAILY ORAL 09/01/16 09:00 10/01/16 08:59 09/03/16 08:47 ALESSANDRO COLLIER M.D. Sep 03, 2016 22:04
--- NOTE | 2016-09-03 22:06 | Infectious Diseases Prog Note ---
Assessment/Plan Assessment/Plan ASSESSMENT: 50 y/o female with: // Post-op bilateral breast wound dehiscence / infection - SP I&D, right implant removal, bilateral vac placement 08/31 - WGS(-), Cx Enterococcus and Staph A - SP I&D, left implant removal 08/26 - WCx qS-E.coli, V,ASEnterococcus - SP bilateral capsulectomy / implant exchange / breast lift 07/23/16 - SP augmentation mammoplasty 2006 // Leukopenia, afebrile // Renal insufficiency ?acute vs chronic vs bactrim false elevation // Thrombocytosis // Hyperlipidemia // NKDA // Full Code PLAN: - continue Levaquin d# 4 change to Augmentin and Bactrim d# 1 ( 08/31 SP IV vancomycin, cefepime d# 1- changed d/t IV infiltration? ) - f/u cultures - monitor CBC, temperatures - monitor BMP - wound care / vac - plan vac change 09/03 Subjective Constitutional: Denies: anorexia, chills, drenching sweats, fatigue, fever, no symptoms, other Allergies: Coded Allergies: No Known Allergies (Unverified , 08/28/16) Objective Vital Signs Last 24 Hour Vital Signs Date Time Temp Pulse Resp B/P Pulse Ox O2 Delivery O2 Flow Rate FiO2 09/03/16 19:29 97.5 62 20 110/77 98 Room Air 09/03/16 15:58 97.5 69 18 115/89 98 Room Air 09/03/16 12:37 98.8 114 18 113/65 Nasal Cannula 09/03/16 10:27 97.3 09/03/16 08:45 97.3 71 18 117/84 98 Room Air 09/03/16 04:00 97.7 67 20 105/74 98 Room Air 09/03/16 00:00 97.5 79 18 108/75 95 Room Air Height (Feet): 5 Height (Inches): 7.00 Weight (Pounds): 180 HEENT: anicteric Respiratory/Chest: normal breath sounds Cardiovascular: regular rhythm Abdomen: no organomegaly Laboratory Tests Test 09/03/16 05:40 White Blood Count 4.9 K/UL (4.8-10.8) Red Blood Count 3.96 M/UL (4.20-5.40) L Hemoglobin 12.1 G/DL (12.0-16.0) Hematocrit 36.5 % (37.0-47.0) L Mean Corpuscular Volume 92 FL (80-99) Mean Corpuscular Hemoglobin 30.7 PG (27.0-31.0) Mean Corpuscular Hemoglobin Concent 33.2 G/DL (32.0-36.0) Red Cell Distribution Width 12.8 % (11.6-14.8) Platelet Count 438 K/UL (150-450) Mean Platelet Volume 5.1 FL (6.5-10.1) L Neutrophils (%) (Auto) 53.4 % (45.0-75.0) Lymphocytes (%) (Auto) 33.8 % (20.0-45.0) Monocytes (%) (Auto) 8.7 % (1.0-10.0) Eosinophils (%) (Auto) 3.2 % (0.0-3.0) H Basophils (%) (Auto) 0.9 % (0.0-2.0) Current Medications Medications (Trade) Dose Ordered Sig/Kaylin Route PRN Reason Start Time Stop Time Status Last Admin Dose Admin Acetaminophen (Tylenol) 650 mg Q6H PRN ORAL Mild Pain/Temp > 100.5 08/31/16 22:45 09/30/16 22:44 09/03/16 09:28 Acetaminophen/ Hydrocodone Bitart ([place] 5/325) 1 tab Q6H PRN ORAL For Pain 08/31/16 22:45 09/07/16 22:44 Enoxaparin Sodium 40 mg 40 mg DAILY SUBQ 09/01/16 09:00 10/01/16 08:59 09/03/16 08:48 Hydromorphone HCl (Dilaudid) 1 mg Q6HR PRN SUBQ Severe Pain (Pain Scale 7-10) 08/31/16 22:45 09/07/16 22:44 Levofloxacin (Levaquin) 100 ml @ 200 mls/hr Q24H IVPB 09/03/16 11:42 09/08/16 10:59 09/03/16 11:42 Pantoprazole (Protonix) 40 mg DAILY ORAL 09/01/16 09:00 10/01/16 08:59 09/03/16 08:47 ALESSANDRO COLLIER M.D. Sep 03, 2016 22:06
[2016-09-03] MEDS: Augmentin 875mg Tab ORAL SCH (23:51)
[2016-09-03] MEDS: Bactrim DS (160mg/800mg) tab ORAL SCH (23:51)
[2016-09-04] VITALS: BP 130/66
[2016-09-04 04:00] VITALS: BP 104/72
[2016-09-04 07:04] LABS: BASOPHILS % (AUTO) 1.2 % (0.0-2.0); EOSINOPHILS % (AUTO) 3.6 % (0.0-3.0); LYMPHOCYTES % (AUTO) 33.6 % (20.0-45.0); MEAN CORPUSCULAR HEMOGLOBIN 29.5 PG (27.0-31.0); MEAN CORPUSCULAR HGB CONC 31.7 G/DL (32.0-36.0); MEAN CORPUSCULAR VOLUME 93 FL (80-99); MEAN PLATELET VOLUME 5.4 FL (6.5-10.1); MONOCYTES % (AUTO) 7.4 % (1.0-10.0); NEUTROPHILS % (AUTO) 54.2 % (45.0-75.0); PLATELET COUNT 445 K/UL (150-450); RED BLOOD COUNT 4.27 M/UL (4.20-5.40); RED CELL DISTRIBUTION WIDTH 12.7 % (11.6-14.8)
[2016-09-04 08:24] VITALS: BP 108/85
--- NOTE | 2016-09-04 09:27 | Infectious Diseases Prog Note ---
Assessment/Plan Assessment/Plan ASSESSMENT: 50 y/o female with: // Post-op bilateral breast wound dehiscence / infection - SP I&D, right implant removal, bilateral vac placement 08/31 - WGS(-), Cx Enterococcus and MRSA ( [facility] ) - SP I&D, left implant removal 08/26 - WCx qS-E.coli, V,ASEnterococcus - SP bilateral capsulectomy / implant exchange / breast lift 07/23/16 - SP augmentation mammoplasty 2006 // Leukopenia, afebrile // Renal insufficiency ?acute vs chronic vs bactrim false elevation // Thrombocytosis // Hyperlipidemia // NKDA // Full Code PLAN: - Augmentin and Bactrim d# , Ok to DC w cont of Ab Rx ( Rx in chart ) 09/03 Levaquin d# 4 ( 08/31 SP IV vancomycin, cefepime d# 1- changed d/t IV infiltration? ) - f/u cultures - monitor CBC, temperatures - monitor BMP - wound care / vac as per PlastSx Subjective Constitutional: Denies: anorexia, chills, drenching sweats, fatigue, fever, no symptoms, other Allergies: Coded Allergies: No Known Allergies (Unverified , 08/28/16) Objective Vital Signs Last 24 Hour Vital Signs Date Time Temp Pulse Resp B/P Pulse Ox O2 Delivery O2 Flow Rate FiO2 09/04/16 08:24 97.5 81 20 108/85 96 Room Air 09/04/16 04:00 97.6 83 21 104/72 98 Endotracheal Tube 09/04/16 00:00 98.0 81 20 130/66 98 Room Air 09/03/16 19:29 97.5 62 20 110/77 98 Room Air 09/03/16 15:58 97.5 69 18 115/89 98 Room Air 09/03/16 12:37 98.8 114 18 113/65 Nasal Cannula 09/03/16 10:27 97.3 Height (Feet): 5 Height (Inches): 7.00 Weight (Pounds): 180 HEENT: PERRL Cardiovascular: normal rate Abdomen: no organomegaly Laboratory Tests Test 09/04/16 05:10 White Blood Count 5.0 K/UL (4.8-10.8) Red Blood Count 4.27 M/UL (4.20-5.40) Hemoglobin 12.6 G/DL (12.0-16.0) Hematocrit 39.8 % (37.0-47.0) Mean Corpuscular Volume 93 FL (80-99) Mean Corpuscular Hemoglobin 29.5 PG (27.0-31.0) Mean Corpuscular Hemoglobin Concent 31.7 G/DL (32.0-36.0) L Red Cell Distribution Width 12.7 % (11.6-14.8) Platelet Count 445 K/UL (150-450) Mean Platelet Volume 5.4 FL (6.5-10.1) L Neutrophils (%) (Auto) 54.2 % (45.0-75.0) Lymphocytes (%) (Auto) 33.6 % (20.0-45.0) Monocytes (%) (Auto) 7.4 % (1.0-10.0) Eosinophils (%) (Auto) 3.6 % (0.0-3.0) H Basophils (%) (Auto) 1.2 % (0.0-2.0) Current Medications Medications (Trade) Dose Ordered Sig/Kaylin Route PRN Reason Start Time Stop Time Status Last Admin Dose Admin Acetaminophen (Tylenol) 650 mg Q6H PRN ORAL Mild Pain/Temp > 100.5 08/31/16 22:45 09/30/16 22:44 09/03/16 09:28 Acetaminophen/ Hydrocodone Bitart ([place] 5/325) 1 tab Q6H PRN ORAL For Pain 08/31/16 22:45 09/07/16 22:44 Amoxicillin/ Clavulanate Potassium (Augmentin) 875 mg EVERY 12 HOURS ORAL 09/03/16 23:00 09/10/16 22:59 09/03/16 23:51 Enoxaparin Sodium (Lovenox) 40 mg DAILY SUBQ 09/01/16 09:00 10/01/16 08:59 09/03/16 08:48 Hydromorphone HCl (Dilaudid) 1 mg Q6HR PRN SUBQ Severe Pain (Pain Scale 7-10) 08/31/16 22:45 09/07/16 22:44 Pantoprazole (Protonix) 40 mg DAILY ORAL 09/01/16 09:00 10/01/16 08:59 09/03/16 08:47 Trimethoprim/ Sulfamethoxazole (Bactrim-DS) 1 ea TWICE A DAY ORAL 09/03/16 23:00 09/10/16 22:59 09/03/16 23:51 ALESSANDRO COLLIER M.D. Sep 04, 2016 09:27
[2016-09-04] MEDS: Bactrim DS (160mg/800mg) tab ORAL SCH ×2 (09:58→18:59)
[2016-09-04] MEDS: Augmentin 875mg Tab ORAL SCH ×2 (09:58→20:48)
[2016-09-04] MEDS: Enoxaparin 40mg Inj SUBQ SCH (10:00)
--- NOTE | 2016-09-04 10:11 | General Progress Note ---
Progress Note Progress Note History: No events overnight. Doing well. Wound vac changed yesterday. Pain adequately controlled. Exam: AFVSS NAD Wound vac dressing in position on bilateral breasts with good seal. No cellulitis. A/P: 50y/o F s/p washout and debridement of bilateral breast wounds with wound vac placement POD#4. Doing well. Wound vac changed yesterday. Wounds noted to be clean in no need of further debridement. Plan for d/c home today with wound vac therapy and antibiotics. Appreciate assistance from medicine and ID. SADIE IRIZARRY M.D. Sep 04, 2016 10:11
--- NOTE | 2016-09-04 10:16 | Internal Med Progress Note ---
Subjective Physician Name Myron Senior Attending Physician Derrick Zambrano M.D. Current Medications Medications (Trade) Dose Ordered Sig/Kaylin Route PRN Reason Start Time Stop Time Status Last Admin Dose Admin Acetaminophen (Tylenol) 650 mg Q6H PRN ORAL Mild Pain/Temp > 100.5 08/31/16 22:45 09/30/16 22:44 09/03/16 09:28 Acetaminophen/ Hydrocodone Bitart ([place] 5/325) 1 tab Q6H PRN ORAL For Pain 08/31/16 22:45 09/07/16 22:44 Amoxicillin/ Clavulanate Potassium (Augmentin) 875 mg EVERY 12 HOURS ORAL 09/03/16 23:00 09/10/16 22:59 09/04/16 09:58 Enoxaparin Sodium (Lovenox) 40 mg DAILY SUBQ 09/01/16 09:00 10/01/16 08:59 09/04/16 10:00 Hydromorphone HCl (Dilaudid) 1 mg Q6HR PRN SUBQ Severe Pain (Pain Scale 7-10) 08/31/16 22:45 09/07/16 22:44 Pantoprazole (Protonix) 40 mg DAILY ORAL 09/01/16 09:00 10/01/16 08:59 09/04/16 09:58 Trimethoprim/ Sulfamethoxazole (Bactrim-DS) 1 ea TWICE A DAY ORAL 09/03/16 23:00 09/10/16 22:59 09/04/16 09:58 Allergies: Coded Allergies: No Known Allergies (Unverified , 08/28/16) ROS Limited/Unobtainable: No Constitutional: Reports: no symptoms HEENT: Reports: no symptoms Cardiovascular: Reports: no symptoms Subjective breast tissues wound are appropriately dressed Objective Last Vital Signs Date Time Temp Pulse Resp B/P Pulse Ox O2 Delivery O2 Flow Rate FiO2 09/04/16 08:24 97.5 81 20 108/85 96 Room Air 08/31/16 19:30 3.0 General Appearance: no apparent distress EENT: PERRL/EOMI Neck: supple Cardiovascular: normal rate Respiratory/Chest: lungs clear Abdomen: soft Extremities: non-tender Neurologic: manager progressive care II-XII grossly normal Skin: other - breast tissues are appropriatedly dressed and Vac in place Laboratory Tests Test 09/04/16 05:10 White Blood Count 5.0 K/UL (4.8-10.8) Red Blood Count 4.27 M/UL (4.20-5.40) Hemoglobin 12.6 G/DL (12.0-16.0) Hematocrit 39.8 % (37.0-47.0) Mean Corpuscular Volume 93 FL (80-99) Mean Corpuscular Hemoglobin 29.5 PG (27.0-31.0) Mean Corpuscular Hemoglobin Concent 31.7 G/DL (32.0-36.0) L Red Cell Distribution Width 12.7 % (11.6-14.8) Platelet Count 445 K/UL (150-450) Mean Platelet Volume 5.4 FL (6.5-10.1) L Neutrophils (%) (Auto) 54.2 % (45.0-75.0) Lymphocytes (%) (Auto) 33.6 % (20.0-45.0) Monocytes (%) (Auto) 7.4 % (1.0-10.0) Eosinophils (%) (Auto) 3.6 % (0.0-3.0) H Basophils (%) (Auto) 1.2 % (0.0-2.0) Intake and Output 09/03/16 09/04/16 19:00 07:00 Intake Total 440 ml Balance 440 ml Intake Oral 240 ml IV Total 200 ml Assessment/Plan Status: stable Assessment/Plan 1. Cellulitis of the breast tissues 2. Post breast implant surgery followed by extraction and revision of the breast implants 3. Acute renal failure.: stable. likely dehydration 4. Dehydration. 5. Hyperkalemia. 6. Gastrointestinal and deep vein thrombosis prophylaxis. Plan: ID-Dr Brooke/Dr Young New cultures are obtained and pending current management at Dr Camarillo's discretion ok to Dc on Bactrim plus Augmentin Myron Senior MD Sep 04, 2016 10:16
[2016-09-04 11:52] VITALS: BP 112/68
[2016-09-04 16:10] VITALS: BP 107/80
[2016-09-04] MEDS ORDERED: BACTRIM 400-801 EACH ORAL (18:01)
[2016-09-04] MEDS ORDERED: AUGMENTIN 875-1 EAC1 ORAL (18:02)
[2016-09-04 20:00] VITALS: BP 121/88
[2016-09-04] MEDS ORDERED: NS 275ml ONE (21:52)
[2016-09-04] MEDS ORDERED: Tubing IV Secondary IV ONE (21:52)
[2016-09-04] MEDS ORDERED: NS Irrig 1000ml ONE (21:52)
--- NOTE | 2016-09-07 13:38 | Discharge Summary ---
Discharge Summary Hospital Course Date of Admission Aug 31, 2016 at 12:27 Date of Discharge Sep 04, 2016 at 21:53 Admitting Diagnosis bilateral breast wound Reason for Hospitalization: elective surgery HPI Reina Velásquez is a 50 year old female who was admitted on Aug 31, 2016 at 12 :27 for Bilateral Breast Wounds The patient previously undergone bilateral capsulectomy, implant exchange, and breast lift procedure one month ago on 07/24/2015. The patient's postoperative course has been complicated by wound dehiscence of each breast and ischemic necrosis of bilateral areolas. The patient was subsequently taken back to the operating room for a washout and debridement procedure of bilateral breast wounds and removal of the left breast implant five days ago on 08/26/2016. The patient was in need of further washout and debridement of bilateral breast wounds, removal of the right breast implant, and possible wound VAC placement bilateral breast. Consultations dr Senior - IM dr Brooke - [facility] Procedures s/p 08/31/[address] Zambrano 1. Washout and debridement of bilateral breast wounds. 2. Removal of right breast implant. 3. Placement of wound VACs on right and left breasts. Hospital Course s/p surgery course of recovery uneventful wound clean, no need for more debridement wound vacs changed 09/03 dressing with good seal abx, ID followed wound cx Lt-Enterococci, MRSA, wound cx right - Enterococci pain management , pain controlled creat down to 1.1 TIMOTHY ? was 2 to dehydration vs Bactrim use? off Bactrim bowel regimen voided, had BM tolerated diet DVT GI prophylaxis dc home with vac bilaterally and abx as recommended by ID FINAL DIAGNOSIS Bilateral breast wound dehiscence and infection s/p 08/31 Washout and debridement bilateral breasts. Removal right breast implant. Placement of bilateral wound vacs. acute kidney injury- resolved ( likely prerenal possibly due to dehydration) Discharge Medications Continued Medications: Amoxicillin/Potassium Clav 875-125* (Augmentin 875-125 Tablet*) 1 Each Tablet 1 TAB ORAL TWICE A DAY for 10 Days, TAB Sulfamethoxazole/Trimethoprim (Bactrim 400-80 Mg Tablet*) 1 Each Tablet 1 TAB ORAL TWICE A DAY for 10 Days, TAB Discharge Condition Upon Discharge: stable Discharge Disposition Patient was discharged to Home (01) Discharge Diagnoses: Discharge Instructions Discharge Instructions Special Instructions I have been assigned to complete a D/C Summary on this account. I was not involved in the patient management Lena Barry NP ([place]) Sep 07, 2016 13:38
== END 2016-09-04 21:53 | disposition home or self-care (01) | DRG 908 ==
LOC: SDSOVERFLO 12:27 → 3E 21:04 → 4W 09-02 14:20
DX: T81.31XA Disruption of external operation (surgical) wound, not elsewhere classified, initial encounter (principal); N17.9 Acute kidney failure, unspecified; E87.5 Hyperkalemia; Y83.8 Other surgical procedures as the cause of abnormal reaction of the patient, or of later complication, without mention of misadventure at the time of the procedure; E78.00 Pure hypercholesterolemia, unspecified; E86.0 Dehydration
CPT/HCPCS: 36415; 80053; 85025; 85610; 85730; 87070; 87075; 87081; 87181; 87205; 94003; 94150